=== PATIENT | male | born 1995 | race American Indian/Alaskan Native ===

== ENCOUNTER 2018-10-10 21:51 | Emergency (ER) | payer BC ==
[2018-10-10 22:48] VITALS: RESP 18; TEMP 98.9; O2SAT 98; BMI 29.5
--- NOTE | 2018-10-10 23:44 | ED PDOC ---
Arrival/HPI - General Chief Complaint: Lower Extremity Problem/Injury Time Seen by Provider: 10/10/18 22:35 Historian: Patient - History of Present Illness Narrative History of Present Illness (Text): 10/10/18 23:41 23 year old male, with no significant past medical history, presents to the emergency department complaining of right knee pain, status post injury 15 minutes prior. Patient states he was playing basketball, and upon jumping, felt acute onset of right sided knee pain. Patient informs pain is only present with ambulation. Patient is able to bear weight, but it causes pain. Patient states he has not taken any pain medication. Patient denies any numbness, paresthesia, abrasions, or any other complaint. Time/Duration: Prior to Arrival Symptom Onset: Sudden Symptom Course: Unchanged Activities at Onset: Significant Past Medical History - Provider Review Nursing Documentation Reviewed: Yes - Infectious Disease Hx of Infectious Diseases: None - Psychiatric Hx Substance Use: No Family/Social History - Physician Review Nursing Documentation Reviewed: Yes Family/Social History: No Known Family HX Smoking Status: Never Smoked Hx Alcohol Use: Yes Hx Substance Use: No Allergies/Home Meds Allergies/Adverse Reactions: Allergies No Known Allergies Allergy (Verified 09/10/17 14:44) Home Medications: Home Meds Medication Instructions Recorded Confirmed No Known Home Med 09/10/17 10/10/18 Review of Systems - Physician Review All systems were reviewed & negative as marked: Yes - Review of Systems Constitutional: Normal. absent: Fevers Eyes: Normal, Vision Changes Respiratory: Normal. absent: SOB Cardiovascular: Normal. absent: Chest Pain Gastrointestinal: Normal. absent: Abdominal Pain, Nausea, Vomiting Genitourinary Male: Normal Musculoskeletal: Arthralgias (right knee). absent: Other (no numbness, no parasthesia) Skin: Normal. absent: Skin Lesions Neurological: Normal. absent: Headache, Dizziness, Other (numbness, paresthesias) Physical Exam Vital Signs Reviewed: Yes Vital Signs Temp Pulse Resp BP Pulse Ox 10/10/18 22:34 98.9 F 68 18 138/68 98 Temperature: Afebrile Blood Pressure: Normal Pulse: Regular Respiratory Rate: Normal Appearance: Positive for: Well-Appearing, Non-Toxic, Comfortable Pain Distress: None Mental Status: Positive for: Alert and Oriented X 3 - Systems Exam Head: Present: Atraumatic, Normocephalic Pupils: Present: PERRL Extroacular Muscles: Present: EOMI Conjunctiva: Present: Normal Mouth: Present: Moist Mucous Membranes Neck: Present: Normal Range of Motion Respiratory/Chest: Present: Clear to Auscultation, Good Air Exchange. No: Respiratory Distress, Accessory Muscle Use Cardiovascular: Present: Regular Rate and Rhythm, Normal S1, S2. No: Murmurs Abdomen: Present: Normal Bowel Sounds. No: Tenderness, Distention, Peritoneal Signs Back: Present: Normal Inspection Upper Extremity: Present: Normal Inspection. No: Cyanosis, Edema Lower Extremity: Present: Normal Inspection, NORMAL PULSES, Tenderness (tenderness over right patellar tendon), Swelling (mild swelling to right ant erior knee), Neurovascularly Intact, Capillary Refill < 2 s. No: Normal ROM (decreased flexion right knee secondary to pain), Erythema (no echymosis) Neurological: Present: Speech Normal, Gait Normal (Able to ambulate with limp) Skin: Present: Warm, Dry, Normal Color. No: Rashes Psychiatric: Present: Alert, Oriented x 3, Normal Insight, Normal Concentration Medical Decision Making ED Course and Treatment: 10/10/18 23:48 Impression: 23 year old male presents with right knee pain. Plan: -- Ibuprofen -- X-rays of right knee -- Ice pack -- Reassess and disposition Prior Visits: Notes and results from previous visits were reviewed. Progress Notes: 0015 --Right Knee XR: possibly mildly displaced patella superiorly as read by me and Dr. Fagan. Will get Right lower extremity CT 0115 --Patient transported to CT 0200 --Patient care transferred to Dr. Fagan, who will dispo patient. Pending imaging results. - RAD Interpretation Radiology Orders: 10/10/18 22:47 KNEE W PATELLA RIGHT 3 VIEW [RAD] Stat Environmental Technical Officer: Radiologist - Medication Orders Current Medication Orders: Discontinued Medications Ibuprofen (Motrin Tab) 600 mg PO STAT STA Stop: 10/10/18 22:48 Last Admin: 10/10/18 23:12 Dose: 600 mg MAR Pain/Vitals Document 10/10/18 23:12 SS (Rec: 10/10/18 23:12 SS [id number]) Pain Reassessment Is This A Pain ReAssessment? No Presence of Pain Presence of Pain Yes - Scribe Statement The provider has reviewed the documentation as recorded by the Scribe Peter Lawrence Provider Scribe Attestation: All medical record entries made by the Ranjith were at my direction and personally dictated by me. I have reviewed the chart and agree that the record accurately reflects my personal performance of the history, physical exam, medical decision making, and the department course for this patient. I have also personally directed, reviewed, and agree with the discharge instructions and disposition. Disposition/Present on Arrival - Present on Arrival Any Indicators Present on Arrival: No History of DVT/PE: No History of Uncontrolled Diabetes: No Urinary Catheter: No History of Decub. Ulcer: No History Surgical Site Infection Following: None - Disposition Have Diagnosis and Disposition been Completed?: Yes Diagnosis: Patellar tendon rupture Disposition: HOME/ ROUTINE Disposition Time: 04:00 Condition: STABLE Discharge Instructions (ExitCare): Lower Extremity Muscle Strain (DC) Additional Instructions: follow up with orthopedics Referrals: Artie Velazco III, MD [Medical Doctor] - Follow up with primary Jr Aquino MD [Primary Care Provider] - Follow up with primary Forms: [facility] [employer] [facility] [employer] ([place]), WORK NOTE
[2018-10-11 04:20] VITALS: BP 132/65; PULSE 70
--- NOTE | 2018-10-11 10:50 | CT ---
Date of service: 10/11/2018 PROCEDURE: CT of the right knee HISTORY: knee injury today, r/o patellar tendon rupture COMPARISON: TECHNIQUE: Radiation dose: Total exam DLP = 361.84 mGy-cm. This CT exam was performed using one or more of the following dose reduction techniques: Automated exposure control, adjustment of the mA and/or kV according to patient size, and/or use of iterative reconstruction technique. FINDINGS: The patellar tendon has an irregular wavy contour consistent with a tear. Some of the fibers appear to be intact. MRI may provide a more accurate assessment. There is no evidence of fracture. There is no joint effusion. There is no bony avulsion The report concurs with the preliminary [facility] report IMPRESSION: The patellar tendon has an irregular wavy contour consistent with a tear. Some of the fibers appear to be intact.
--- NOTE | 2018-10-11 14:35 | RAD ---
Date of service: 10/10/2018 PROCEDURE: Right Knee Radiographs. HISTORY: trauma, r/o dislocation, fracture COMPARISON: None. FINDINGS: BONES: Normal. No fracture. JOINTS: Normal. No osteoarthritis. JOINT EFFUSION: None. OTHER FINDINGS: There is a wavy contour of the patellar tendon which may represent patellar tendon tear. IMPRESSION: No evidence of fracture. Possible patellar tendon tear
== END 2018-10-11 04:22 | disposition home or self-care (01) ==
LOC: ED 21:51
DX: S76.111A Strain of right quadriceps muscle, fascia and tendon, initial encounter (principal); X50.0XXA Overexertion from strenuous movement or load, initial encounter; Y93.67 Activity, basketball; Y92.310 Basketball court as the place of occurrence of the external cause